=== PATIENT | female | born 1950 | race Caucasian/White ===

== ENCOUNTER → 2021-04-15 | Day surgery (SDC) | payer MEDICARE, MEDICAID ==
[2021-04-12 11:51] LABS: COVID AG,FIA SOURCE NASOPHARYNGEAL
[~2021-04-15] VITALS: Ht 152.4 cm; Wt 43.6 kg
[~2021-04-15] MED LIST: ALEN70TA80 PO; ATOR10TA69 PO; CARB1TAB35 PO; EMPA10TA PO; FAMO40TA7 PO; FLUT16H NASAL; FLUT1BLS13 IH; FLUT220HFA IH; FentaNYL CITRATE PF 100 MCG/2 ML VIAL ONE; INSU300I3 SQ; LISI-809 PO; METF-960 PO; METHI5 PO; MIDAZOLAM HCL 5 MG/ML VIAL ONE; MONT10TA32 PO; MethylPREDNISolone SOD SUCC 125 MG/2 ML VIAL IVP ONE; MethylPREDNISolone SOD SUCC 125 MG/2 ML VIAL ONE; OXYGEN THERAPY IH SCH; SODIUM CHLORIDE 0.9% 1,000 ML IV ONE
[2021-04-15 08:01] LABS: GLUCOMETER DEV NAME(LOC) SDS.; GLUCOSE,POINT OF CARE 119 MG/DL (70-110)
== END | disposition home or self-care (01) ==
LOC: SURGERY 06:15
PROVIDERS: ATTEND Internal Medicine Critical Care Medicine
DX: J38.4 Edema of larynx (principal); B37.0 Candidal stomatitis; I10 Essential (primary) hypertension; Z79.899 Other long term (current) drug therapy; Z98.890 Other specified postprocedural states
CPT/HCPCS: 31623; 31624; 71045; 82962; 87015; 87070; 87101; 87205; 87206; 87220; 87426; 88108; 88184; 88185; 88312; C9803; J2250; J2930; J3010